=== PATIENT | female | born 1940 | race Caucasian/White ===

== ENCOUNTER 2023-06-30 12:41 | Outpatient (CLI) | payer MEDICARE, OTHER | END 2023-06-30 12:42 | disposition home or self-care (01) | LOC: CSHULT 12:41 | PROVIDERS: ATTEND Urology | DX: N28.89 Other specified disorders of kidney and ureter (principal); Z79.01 Long term (current) use of anticoagulants | CPT/HCPCS: 76770 ==

== ENCOUNTER 2023-09-21 09:44 | Outpatient (CLI) | payer MEDICARE, OTHER ==
[~2023-09-21 09:44] MED LIST: Iopamidol 300 61% 100 ML VIAL FS ONE
== END 2023-09-21 09:45 | disposition home or self-care (01) ==
LOC: CSHCT 09:44
PROVIDERS: ATTEND Urology
DX: N28.89 Other specified disorders of kidney and ureter (principal)
CPT/HCPCS: 74178

== ENCOUNTER 2024-09-05 08:15 | Outpatient (CLI) | payer MEDICARE, OTHER | END 2024-09-05 08:16 | disposition home or self-care (01) | LOC: CSHMRI 08:15 | PROVIDERS: ATTEND Specialist | DX: M47.26 Other spondylosis with radiculopathy, lumbar region (principal); M41.86 Other forms of scoliosis, lumbar region; M51.16 Intervertebral disc disorders with radiculopathy, lumbar region; M48.07 Spinal stenosis, lumbosacral region; M48.061 Spinal stenosis, lumbar region without neurogenic claudication | CPT/HCPCS: 72148 ==